=== PATIENT | male | born 1955 | race Caucasian/White ===

== ENCOUNTER 2023-02-05 15:21 | Emergency (ER) | payer MEDICARE ==
[~2023-02-05] VITALS: Ht 172.7 cm; Wt 72.6 kg
[~2023-02-05 15:21] MED LIST: BACTRIM DS 8001 TA1 PO; KEFLEX500 M1 PO
[2023-02-05] MEDS ORDERED: OXYCODONE-ACET1 EAC3 PO (17:00)
== END 2023-02-05 17:30 | disposition home or self-care (01) ==
LOC: ED 15:21
DX: S42.001A Fracture of unspecified part of right clavicle, initial encounter for closed fracture (principal); S22.31XA Fracture of one rib, right side, initial encounter for closed fracture; Z79.2 Long term (current) use of antibiotics; W17.81XA Fall down embankment (hill), initial encounter; Y93.89 Activity, other specified; Y92.89 Other specified places as the place of occurrence of the external cause; Y99.8 Other external cause status